=== PATIENT | female | born 1960 | race Caucasian/White ===

== ENCOUNTER 2018-04-28 15:40 | Inpatient (IN) | payer OTHER ==
[~2018-04-28] VITALS: Ht 165.1 cm; Wt 67.3 kg
[2018-04-28 15:45] VITALS: Ht 165.1 cm; Wt 67.3 kg
[2018-04-28 18:50] LABS: CALCIUM 8.8 mg/dL (8.5-10.1); CARBON DIOXIDE 17.8 mmol/L (21-32); CHLORIDE SERUM 99 mmol/L (98-107); CREATININE SERUM 0.7 mg/dL (0.6-1.0); GFR1 > 60 mL/min; GLUCOSE SERUM 420 mg/dL (74-106); POTASSIUM SERUM 3.5 mmol/L (3.5-5.1); SODIUM SERUM 134 mmol/L (136-145)
[2018-04-28 18:51] LABS: BASOPHIL % 0.7 % (0-2); PLATELET COUNT 189 x10^3mcL (130-400); RED CELL DISTRIBUTION WIDTH 13.4 % (11.5-14.5)
[2018-04-28 18:55] LABS: ALBUMIN 3.8 g/dL (3.4-5.0); ALKALINE PHOSPHATASE 77 U/L (46-116); ALT/SGPT 26 U/L (14-59); AST/SGOT 9 U/L (15-37); BILIRUBIN TOTAL 0.57 mg/dL (0.20-1.00)
[2018-04-28 19:32] LABS: microscopic required? NO
[2018-04-28 20:14] LABS: UA SPECIFIC GRAVITY 1.025 (1.005-1.035); urine erythrocyte NEGATIVE (NEGATIVE)
[2018-04-28] MEDS ORDERED: BUT/ASP/CAFF W/1 CAP PO (20:48)
[2018-04-28] MEDS ORDERED: GABAPENTIN300 M4 PO (20:49)
[2018-04-28 21:05] LABS: MAGNESIUM 1.9 mg/dL (1.8-2.4); PHOSPHOROUS 3.1 mg/dL (2.5-4.9)
[2018-04-28 21:06] LABS: CHOLESTEROL/HDL RATIO 6.3
[2018-04-28 21:09] LABS: FREE T4 0.93 ng/dL (0.76-1.46); FREE THYROXINE INDEX 2.3 ug/dL (1.4-4.5); T4(THYROXINE) 6.9 ug/dL (4.7-13.3)
[2018-04-28 21:25] VITALS: BP 120/78
[2018-04-28 21:49] LABS: T3 TOTAL 0.92 ng/mL
[2018-04-28 22:21] LABS: AMPHETAMINE QUAL UR NONE DETECTED (See below)
[2018-04-29 05:19] VITALS: BP 101/64
[2018-04-29 07:53] LABS: BASOPHIL % 0.7 % (0-2); PLATELET COUNT 167 x10^3mcL (130-400)
[2018-04-29 08:03] LABS: CALCIUM 8.6 mg/dL (8.5-10.1); CARBON DIOXIDE 18.8 mmol/L (21-32); CHLORIDE SERUM 102 mmol/L (98-107); CREATININE SERUM 0.7 mg/dL (0.6-1.0); GFR1 > 60 mL/min; MAGNESIUM 1.8 mg/dL (1.8-2.4); PHOSPHOROUS 3.3 mg/dL (2.5-4.9); SODIUM SERUM 137 mmol/L (136-145)
[2018-04-29 08:06] LABS: GLUCOSE SERUM 452 mg/dL (74-106)
[2018-04-29 09:04] VITALS: BP 108/70
[2018-04-29 16:58] VITALS: BP 109/77
[2018-04-29 21:19] VITALS: BP 109/63
[2018-04-30 05:53] VITALS: BP 101/64
[2018-04-30 09:08] VITALS: BP 97/49
[2018-04-30 14:32] VITALS: BP 97/49
[2018-04-30] MEDS ORDERED: LANTI SQ (14:36)
== END 2018-04-30 16:41 | disposition home or self-care (01) | DRG 420 ==
LOC: ED 15:40 → MU 20:12
PROVIDERS: Emergency Medicine; ADMIT General Practice
DX: E11.65 Type 2 diabetes mellitus with hyperglycemia (principal); E11.40 Type 2 diabetes mellitus with diabetic neuropathy, unspecified; E87.1 Hypo-osmolality and hyponatremia; E78.5 Hyperlipidemia, unspecified; Z68.24 Body mass index [BMI] 24.0-24.9, adult; Z79.84 Long term (current) use of oral hypoglycemic drugs; E78.00 Pure hypercholesterolemia, unspecified; K21.9 Gastro-esophageal reflux disease without esophagitis; Z83.3 Family history of diabetes mellitus
CPT/HCPCS: 82962; 83880; 84439; J1815; J7030; Q0092